=== PATIENT | male | born 1995 | race Caucasian/White ===

== ENCOUNTER 2017-02-05 10:27 | Emergency (ER) | payer OTHER ==
[~2017-02-05 10:27] MED LIST: BACTRIM DS TABL1 TAB PO; MEDROL PO
== END 2017-02-05 11:19 | disposition home or self-care (01) ==
LOC: SED 10:27
DX: R51 Headache (principal); Z88.8 Allergy status to other drugs, medicaments and biological substances
CPT/HCPCS: 96372; 99283; J1885

== ENCOUNTER 2017-04-11 13:47 | Emergency (ER) | payer OTHER ==
--- NOTE | ~2017-04-11 | CR63 ---
[facility]. [facility] RADIOLOGY TEXT RESULTS PATIENT: STU PAINTER LOCATION: SED : [birth year] UNIT #: [id number] AGE: [address]: Giovanny Hubbard MD SEX: M ORDER DR: [id number] [place] [id number] E MR#: [id number] Acc #: [id number] NAME: STU PAINTER : 1995 SEX: M STUDY DATE/TIME: 04/11/2017 14:27 UNIT: SED ROOM: STUDY DESCRIPTION: CR Chest 2 View Attending Physician: Giovanny Hubbard M.D. Ordering Physician: Giovanny Hubbard M.D. Primary Care Physician: Maximo Kulkarni M.D. MEDICAL IMAGING REPORT This report is preliminary unless electronic signature is present. EXAM Chest x-ray. HISTORY Upper peristernal chest pain for the past 2 days. TECHNIQUE Two views of the chest were obtained. FINDINGS PA and lateral examination of the chest upright shows a good expansion of the parenchyma with a normal distribution of the pulmonary vascularity. There is no indication of congestion, effusion, infiltrate, tumor, or nodular density. The pleural reflections and diaphragmatic contours are normal. The cardiac silhouette and mediastinal anatomy is within normal limits. IMPRESSION Normal two-view chest. Dictated by... Carlos May M.D. THIS IS AN ELECTRONICALLY VERIFIED REPORT Carlos May M.D. at 04/16/2017 2:13 PM YURIDIAF/frannie TD: 04/11/2017 22:30 JOB #: [id number] MEDICAL IMAGING REPORT [facility] A [facility] RADIOLOGY TEXT RESULTS PATIENT: STU PAINTER LOCATION: SED : [birth year] UNIT #: [id number] AGE: [address]: Giovanny Hubbard MD SEX: M ORDER DR: Page 1 of 1
--- NOTE | ~2017-04-11 | EKG ---
PATIENT: STU PAINTER UNIT #: [id number] Ventricular Rate: 92 BPM Atrial Rate: 92 BPM P-R Interval: 140 ms QRS Duration: 78 ms Q-T Interval: 350 ms QTC Calculation(Bezet): 432 ms P [place]: 48 degrees Calculated R [place]: 49 degrees Calculated T [place]: 41 degrees Diagnosis Line: Normal sinus rhythm with sinus arrhythmia Diagnosis Line: Baseline wander Otherwise normal ECG Diagnosis Line: No previous ECGs available Diagnosis Line: Confirmed by VIJAYA GUADALUPE MD ([id number]) on 04/12/2017 Diagnosis Line: 4:38:33 PM INTERPRETING MD: COLLINS HARDY
[2017-04-11 15:03] LABS: POC - CKMB <1.0 ng/mL (0.0-7.9); POC - MYOGLOBIN 55.8 ng/mL (0.0-169.0)
[2017-04-11 15:04] LABS: POC - TROPONIN <0.05 ng/mL (<=0.05)
== END 2017-04-11 15:30 | disposition home or self-care (01) ==
LOC: SED 13:47
PROVIDERS: Emergency Medicine
DX: R07.89 Other chest pain (principal); F41.9 Anxiety disorder, unspecified; Z88.8 Allergy status to other drugs, medicaments and biological substances
CPT/HCPCS: 36415; 71020; 82553; 83874; 84484; 93005; 99285